=== PATIENT | male | born 1995 | race African-American/Black ===

== ENCOUNTER 2019-08-21 17:40 | Outpatient (CLI) | payer OTHER ==
[2019-08-21] MEDS ORDERED: OMNIPAQUE 350 MG/ML, 75ML BOTTLE ONE (18:51)
== END 2019-08-21 23:59 | disposition home or self-care (01) ==
LOC: RAD 17:40
PROVIDERS: ATTEND Nurse Practitioner Family
DX: R22.2 Localized swelling, mass and lump, trunk (principal); R07.89 Other chest pain
CPT/HCPCS: 71260; Q9967

== ENCOUNTER 2019-08-21 18:50 | Outpatient (CLI) | payer OTHER ==
[2019-08-21 19:22] LABS: ALANINE AMINOTRANSFERASE 34 U/L (12-78); ANION GAP 4 mmol/L (5-15); CALCIUM 8.9 mg/dL (8.5-10.1); CHLORIDE 103 mmol/L (98-107); CREATININE 1.29 mg/dL (0.7-1.3)
[2019-08-21 19:24] LABS: ALKALINE PHOSPHATASE 62 U/L (45-117); BASOPHILS # (AUTO) 0.03 x10^3/uL (0-0.1); BASOPHILS % (AUTO) 1 % (0-1); BILIRUBIN,TOTAL 0.3 mg/dL (0.2-1.0); EOSINOPHILS # (AUTO) 0.21 x10^3/uL (0-0.4); EOSINOPHILS % (AUTO) 5 % (1-7); LYMPHOCYTES # (AUTO) 1.99 x10^3/uL (1-3.4); LYMPHOCYTES % (AUTO) 43 % (22-44); MD NO; MEAN CORPUSCULAR HEMOGLOBIN 29.2 pg (27.5-34.5); MEAN CORPUSCULAR HGB CONC 33.5 g/dL (33.2-36.2); MEAN CORPUSCULAR VOLUME 87.3 fL (81-97); MEAN PLATELET VOLUME 8.1 fL (7.4-10.4); MONOCYTES # (AUTO) 0.47 x10^3/uL (0.2-0.8); MONOCYTES % (AUTO) 10 % (2-9); NEUTROPHILS # (AUTO) 1.89 x10^3/uL (1.8-6.8); NEUTROPHILS % (AUTO) 41 % (42-75); PLATELET COUNT 232 x10^3/uL (130-400); RED BLOOD COUNT 4.91 x10^6/uL (4.38-5.82); RED CELL DISTRIBUTION WIDTH 12.5 % (9.4-14.8); TOTAL PROTEIN 7.4 g/dL (6.4-8.2)
== END 2019-08-21 23:59 | disposition home or self-care (01) ==
LOC: LAB 18:50
PROVIDERS: ATTEND Nurse Practitioner Family
DX: R22.2 Localized swelling, mass and lump, trunk (principal)
CPT/HCPCS: 36415; 80053; 85025